=== PATIENT | female | born 1930 | race Caucasian/White ===

== ENCOUNTER 2018-07-27 14:29 | Observation (INO) ==
[2018-07-27 16:10] LABS: Basophils % 0.3 % (0.0-0.8); Eosinophils # 0.1 10*3/uL (0.0-0.87); Eosinophils % 1.2 % (0.00-10.9); Hematocrit 39.9 VOL% (35.7-47.0); Hemoglobin 13.6 GM/DL (12.0-16.0); Immature Granulocytes % 0.6 %; Immature Granulocytes Absolute 0.07 #; Lymphocytes # 1.1 10*3/uL (1.4-4.0); Lymphocytes % 9.5 % (21.3-54.2); Mean Corpuscular HGB Conc 34.1 GM/DL (32-36); Mean Corpuscular Hemoglobin 32 PG (27-34); Mean Corpuscular Volume 93.7 FL (87-102); Mean Platelet Volume 9.8 FL (9.6-12.0); Monocytes # 1.1 10*3/uL (0.11-0.8); Monocytes % 9.6 % (1.7-12.7); Neutrophils # 9.2 10*3/uL (1.4-7.4); Neutrophils % 78.8 % (38.7-73.9); Platelet Count 300 T/CUMM (130-400); Red Blood Count 4.26 MC/CUMM (3.8-5.5); Red Cell Distribution Width 13.8 % (9.3-17.3); White Blood Count 11.7 T/CUMM (4-12)
[2018-07-27 16:45] LABS: Bilirubin,Total 1.4 MG/DL (0.2-1.0); Calcium 9.2 MG/DL (8.5-10.1); Osmolality,Calculated 285.7 MOS/KG (273-304); Potassium 4.3 MMOL/L (3.5-5.1); Total Protein 6.7 G/DL (6.4-8.3)
[2018-07-27] MEDS ORDERED: SODIUM CHLORIDE 0.9% 500 ML IV STA (16:59)
[2018-07-27 17:09] LABS: Apearance,Urine Slightly Hazy (Clear); Bilirubin,Urine Negative (Negative); Blood, Urine Negative (Negative); Glucose,Urine (UA) Negative (Negative); Hyaline Casts,Urine 6 /LPF (0-3); Ketones,Urine Negative (Negative); Mucus,Urine Few /LPF (Occasional); Nitrite,Urine Negative (Negative); Protein,Urine 30 MG/DL; RBC,Urine 3 /HPF (0-4); Squamous Epithelial Cell,Urine Occasional /HPF (0-10); WBC,Urine 2 /HPF (0-6)
[2018-07-27 17:10] LABS: Urine Color Dark yellow (Yellow)
[2018-07-27 19:36] LABS: PT Patient Result 10.4 SECS; Partial Thromboplastin Time 26.1 SECS (0-40)
[2018-07-27] MEDS: ENOXAPARIN 30 MG/0.3 ML SYRINGE SUBCUT SCH (21:37)
[2018-07-27] MEDS: SODIUM CHLORIDE 0.9% 1,000 ML IV SCH (21:37)
[2018-07-27] MEDS ORDERED: DOCUSATE SODIUM 100 MG CAPSULE PEG PRN (23:23)
[2018-07-28] MEDS: OLANZapine 5 MG TABLET PEG SCH ×2 (01:25→20:30)
[2018-07-28] MEDS: SODIUM CHLORIDE 0.9% 1,000 ML IV SCH ×3 (04:51→20:36)
[2018-07-28 04:54] LABS: Basophils % 0.2 % (0.0-0.8); Eosinophils # 0.3 10*3/uL (0.0-0.87); Eosinophils % 2.7 % (0.00-10.9); Hematocrit 31.3 VOL% (35.7-47.0); Hemoglobin 10.6 GM/DL (12.0-16.0); Immature Granulocytes % 0.4 %; Immature Granulocytes Absolute 0.04 #; Lymphocytes # 1.6 10*3/uL (1.4-4.0); Lymphocytes % 15.7 % (21.3-54.2); Mean Corpuscular HGB Conc 33.9 GM/DL (32-36); Mean Corpuscular Hemoglobin 31 PG (27-34); Mean Corpuscular Volume 91.8 FL (87-102); Mean Platelet Volume 10.5 FL (9.6-12.0); Monocytes # 1.1 10*3/uL (0.11-0.8); Monocytes % 10.4 % (1.7-12.7); Neutrophils # 7.2 10*3/uL (1.4-7.4); Neutrophils % 70.6 % (38.7-73.9); Platelet Count 280 T/CUMM (130-400); Red Blood Count 3.41 MC/CUMM (3.8-5.5); Red Cell Distribution Width 13.8 % (9.3-17.3); White Blood Count 10.2 T/CUMM (4-12)
[2018-07-28 05:13] LABS: Albumin 2.3 G/DL (3.4-5.0); Bilirubin,Total 1.3 MG/DL (0.2-1.0); Calcium 8.2 MG/DL (8.5-10.1); Osmolality,Calculated 280.8 MOS/KG (273-304); Potassium 4.3 MMOL/L (3.5-5.1); Total Protein 5.7 G/DL (6.4-8.3)
[2018-07-28] MEDS: LEVOTHYROXINE 50 MCG TABLET PEG SCH (06:05)
[2018-07-28] MEDS: ASPIRIN EC 81 MG TABLET PO SCH (08:44)
[2018-07-28] MEDS: hydroCHLOROthiazide 25 MG TABLET PEG SCH (08:44)
[2018-07-28] MEDS: OLANZapine 2.5 MG TABLET PEG SCH (08:44)
[2018-07-28] MEDS: TELMISARTAN 40 MG TABLET PEG SCH (08:44)
[2018-07-28] MEDS: POLYETHYLENE GLYCOL POWDER 17 GM PACK PEG SCH (08:58)
[2018-07-28] MEDS ORDERED: LOSARTAN 50 MG TABLET PEG SCH (09:00)
[2018-07-28] MEDS: BACITRACIN OINT 0.9 GM PACK TOP SCH (14:05)
[2018-07-28] MEDS: ENOXAPARIN 30 MG/0.3 ML SYRINGE SUBCUT SCH (20:34)
[2018-07-29] MEDS: SODIUM CHLORIDE 0.9% 1,000 ML IV SCH (02:51)
[2018-07-29 05:34] LABS: Calcium 8.1 MG/DL (8.5-10.1); Prealbumin 13.3 MG/DL (20-40)
[2018-07-29] MEDS: TELMISARTAN 40 MG TABLET PEG SCH (08:19)
[2018-07-29] MEDS: ASPIRIN EC 81 MG TABLET PO SCH (08:19)
[2018-07-29] MEDS: hydroCHLOROthiazide 25 MG TABLET PEG SCH (08:20)
[2018-07-29] MEDS: BACITRACIN OINT 0.9 GM PACK TOP SCH (08:20)
[2018-07-29] MEDS: LEVOTHYROXINE 50 MCG TABLET PEG SCH (08:20)
[2018-07-29] MEDS: OLANZapine 2.5 MG TABLET PEG SCH ×2 (08:39→09:29)
[2018-07-29] MEDS: POLYETHYLENE GLYCOL POWDER 17 GM PACK PEG SCH (08:39)
[2018-07-29 10:05] VITALS: BP 151/67
== END 2018-07-29 14:15 | disposition swing bed (61) ==
LOC: EDUNIT# → EDBD → N.ED 14:29 → N.EDINP 14:29 → N.4E 20:35
PROVIDERS: ADMIT Internal Medicine; ATTEND Internal Medicine